=== PATIENT | male | born 2000 | race Caucasian/White ===

== ENCOUNTER 2021-03-06 03:25 | Outpatient (CLI) | payer MEDICAID, SELFPAY ==
[2021-03-07 11:30] LABS: COVID-19 RT-PCR UVMMC Result Negative (Negative)
== END 2021-03-06 03:26 | disposition home or self-care (01) ==
LOC: LBO 03:25
PROVIDERS: PCP Pediatrics; Visit Provider Pediatrics
DX: Z20.822 Contact with and (suspected) exposure to COVID-19 (principal)
CPT/HCPCS: U0003

== ENCOUNTER 2021-04-22 12:22 | Emergency (ER) | payer MEDICAID, SELFPAY ==
[2021-04-22] VITALS (32 sets, daily range): BP systolic 94–139; BP diastolic 49–92; PULSE 60–93; RESP 11–26; TEMP 36.6; O2SAT 94–98
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
[2021-04-22] MEDS: Bacitracin 1 PACKET TP (12:37)
[2021-04-22 12:38] LABS: Absolute Basophil Count 0.03 10^3/uL (0.0-0.2); Absolute Eosinophil Count 0.05 10^3/uL (0.0-0.7); Absolute Lymphocyte Count 1.32 10^3/uL (1.2-3.4); Absolute Monocyte Count 0.32 10^3/uL (0.1-0.8); Absolute Neutrophil Count 1.79 10^3/uL (1.2-6.7); Basophils % 0.9; Eosinophils % 1.4; HCT 44.1 % (40.0-50.0); HGB 15.4 g/dL (13.5-17.5); Lymphocytes % 37.6; MCH 30.3 pg (27.0-33.0); MCHC 34.9 % (32.0-36.0); MCV 86.8 fL (80-95); MPV 8.9 fL (8.0-11.0); Monocytes % 9.1; Nucleated RBC 0 %; Platelet Count 253 10^3/uL (130-400); RBC 5.08 10^6/uL (4.36-5.78); RDW 12.1 % (11.8-14.1); RDW-SD 38.8 fL; WBC 3.51 10^3/uL (4.4-10.8)
[2021-04-22 12:51] LABS: ALT 102 U/L (16-63); AST 34 U/L (15-37); Albumin 4.1 g/dL (3.4-5.0); Alkaline Phosphatase 65 U/L (46-116); Anion Gap 8.1 mmol/L (3-11); BUN 12 mg/dL (7-18); Bilirubin, Total 0.6 mg/dL (0.2-1.0); CO2 29.9 mmol/L (21.0-32.0); CREATININE 0.9 mg/dL (0.70-1.30); Calcium 9.2 mg/dL (8.5-10.1); Chloride 104 mmol/L (98-107); Glucose 108 mg/dL (74-106); Sodium 142 mmol/L (136-145); Total Protein 7.9 g/dL (6.4-8.2)
[2021-04-22 12:53] LABS: Prothrombin Time 10.3 sec (9.3-11.0)
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
[2021-04-22] MEDS: Normal Saline 1,000 ML 1000 ML IV (14:35)
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
== END 2021-04-22 15:32 | disposition home or self-care (01) ==
PROVIDERS: Emergency Provider Student in an Organized Health Care Education/Training Program; PCP Pediatrics
DX: S09.8XXA Other specified injuries of head, initial encounter (principal); S00.83XA Contusion of other part of head, initial encounter; T22.122A Burn of first degree of left elbow, initial encounter; V47.5XXA Car driver injured in collision with fixed or stationary object in traffic accident, initial encounter; D72.819 Decreased white blood cell count, unspecified; R74.01 Elevation of levels of liver transaminase levels
CPT/HCPCS: 36415; 80053; 86850; 86900; 86901; 93005; 96360; 99285; 70450; 72125; 85025; 85610; 93010; 99284